=== PATIENT | female | born 1965 | race Caucasian/White ===

== ENCOUNTER 2017-09-16 11:23 | Emergency (ER) | payer BC ==
[2017-09-16 11:50] VITALS: BP 103/63
--- NOTE | 2017-09-16 12:58 | UC ---
Complaint Female HPI - HPI Summary HPI Summary: c/o inc urinanary freq and burning with urination, intermittent lower ab pressure when urinating, nausea starting yest afternoon. Denies fever, cough, sore throat, cp, sob, v/d, rash, change in BM, vaginal sx. Med hx = none. - History Of Current Complaint Hx Obtained From: Patient Hx Last Menstrual Period: 09/08/17 Onset/Duration: Gradual Onset Timing: Intermittent Severity Currently: None Pain Intensity: 0 Pain Scale Used: 0-10 Numeric Aggravating Factor(s): Urination Alleviating Factor(s): Nothing Associated Signs And Symptoms: Negative: Fever, Back Pain, Vaginal Bleeding/ Discharge, Vaginal Discharge, Vomiting(# Of Episodes =) <Gurjit Gonzalez - Last Filed: 09/16/17 12:52> <Allie Jenkins - Last Filed: 09/17/17 19:38> - History Of Current Complaint Chief Complaint: UCGU Stated Complaint: UTI SYMPTOMS Time Seen by Provider: 09/16/17 12:43 - Allergies/Home Medications Allergies/Adverse Reactions: Allergies Allergy/AdvReac Type Severity Reaction Status Date / Time amoxicillin Allergy Hives Verified 09/16/17 11:44 Sulfa (Sulfonamide Allergy Hives Verified 09/16/17 11:44 Antibiotics) Home Medications: Home Medications Cranberry Conc/C/Bacill Coag [Azo Cranberry 250-30 mg] 1 tab PO 09/16/17 [ History] Mometasone Furoate [Nasonex] 50 mcg NA DAILY 09/16/17 [History Confirmed ] Montelukast Sodium TAB* [Singulair TAB*] 10 mg PO DAILY 09/16/17 [History Confirmed 09/16/17] PMH/Surg Hx/FS Hx/Imm Hx - Surgical History Surgical History: Yes Surgery Procedure, Year, and Place: tubal ligation. hernia. tonsils. bladder sling. ablation - Family History Known Family History: Positive: Diabetes - Social History Alcohol Use: None Substance Use Type: None Smoking Status (MU): Former Smoker When Did the Patient Quit Smoking/Using Tobacco: 2004 <Gurjit Gonzalez - Last Filed: 09/16/17 12:52> Review of Systems Constitutional: Negative Skin: Negative Eyes: Negative ENT: Negative Respiratory: Negative Cardiovascular: Negative Gastrointestinal: Nausea, Other - lower bilat ab pressure Genitourinary: Dysuria Motor: Negative Neurovascular: Negative Musculoskeletal: Negative Neurological: Negative Psychological: Negative Is Patient Immunocompromised?: No All Other Systems Reviewed And Are Negative: Yes <CarlosGurjit - Last Filed: 09/16/17 12:52> Physical Exam Triage Information Reviewed: Yes Appearance: Well-Appearing Vital Signs: Initial Vital Signs Temp 97.8 F 09/16/17 11:45 Pulse 71 09/16/17 11:45 Resp 16 09/16/17 11:45 BP 103/63 09/16/17 11:45 Pulse Ox 99 09/16/17 11:45 Vital Signs Reviewed: Yes Eye Exam: Normal Neck exam: Normal Respiratory Exam: Normal Cardiovascular Exam: Normal Abdominal Exam: Normal Musculoskeletal Exam: Normal Neurological Exam: Normal Psychological Exam: Normal Skin Exam: Normal <CarlosGurjit - Last Filed: 09/16/17 12:52> Vital Signs: Initial Vital Signs Temp 97.8 F 09/16/17 11:45 Pulse 71 09/16/17 11:45 Resp 16 09/16/17 11:45 BP 103/63 09/16/17 11:45 Pulse Ox 99 09/16/17 11:45 <Allie Jenkins - Last Filed: 09/17/17 19:38> Complaint Female Dx - Course Course Of Treatment: + UA + urine sx. Vs wnl. Pt states BP often low, baseline BP around 110/80. Rx for cipro. Refused rx for antiemetic - Differential Dx/Diagnosis Provider Diagnoses: uti <Gurjit Gonzalez - Last Filed: 09/16/17 12:52> Discharge - Sign-Out/Discharge Documenting (check all that apply): Discharge/Admit/Transfer - Billing Disposition and Condition Condition: STABLE Disposition: Home <Gurjit Gonzalez - Last Filed: 09/16/17 12:52> - Billing Disposition and Condition Condition: STABLE Disposition: Home <Allie Jenkins - Last Filed: 09/17/17 19:38> - Discharge Plan Condition: Stable Disposition: HOME Prescriptions: Ciprofloxacin HCl [Cipro] 500 mg PO BID 10 Days #20 tablet Patient Education Materials: Urinary Tract Infection in Women (ED) Referrals: No Primary Care Phys,NOPCP [Primary Care Provider] - [facility] [Outside] Additional Instructions: Take cipro as directed. Follow up with primary care. Return for any new or worsening symptoms. Attestation Statement User Type: Provider - I was available for consult. This patient was seen by the LASHAWN. The patient was not presented to, seen by, or examined by me. -Solange <Allie Jenkins - Last Filed: 09/17/17 19:38>
== END 2017-09-16 13:10 | disposition home or self-care (01) ==
LOC: UCCORT 11:23
DX: N39.0 Urinary tract infection, site not specified (principal); Z88.0 Allergy status to penicillin; Z88.2 Allergy status to sulfonamides; Z87.891 Personal history of nicotine dependence
CPT/HCPCS: 81003; 87077; 87086; 87186; 99212; G0463

== ENCOUNTER 2018-06-09 08:46 | Emergency (ER) | payer BC ==
--- OUTSIDE RECORDS SUMMARY | 2018-06-09 08:55 | XMS REPORT | Continuity of Care Document ---
:1965 External Reference #:[id number] Author Name Juliette Gomez PA Address [address] [place] [address] Care Team Providers Name Role Phone Juliette Gomez PA Care Team Information Entry Level Manager Unavailable Payers Date Identification Numbers Payment Provider Subscriber Effective: 2011 Policy Number: [id number] [facility] [employer] Jenna Ames PayID: [id number] [address] [address] [place] [address] Onset: 2008 Policy Number: [id number] [employer] Jenna Ames PayID: [id number] [address] [place] [address] Advance Directives Description No Information Available Problems Date Description Provider Status Onset: 11/05/2007 Allergic rhinitis due to pollen Cody Quiros DO Active Onset: 03/15/2007 Moderate major depression, single Cody Quiros DO Active episode Family History Description No Information Available Social History Type Date Description Comments Sex Unknown Education Highest level completed, 2 years of college Marital Status Occupation Teacher ETOH Use Occasionally consumes alcohol Tobacco Use Start: Unknown End: Patient is a former smoker quit 2006 Unknown Recreational Drug Use Denies Drug Use Smoking Status Reviewed: 05/10/18 Patient is a former smoker quit 2006 Allergies, Adverse Reactions, Alerts Date Description Reaction Status Severity Comments 08/24/2004 Amoxicillin Active 07/14/2014 Sulfa Drugs Active 08/07/2017 Vyvanse Active Hives Medications Medication Date Status Form Strength Qnty SIG Indications Ordering Provider Cyclobenzaprine 05/22 Active Tablets 5mg 30tab 1 tablet by M25.552 Salcedo, HCL s mouth three Elkin, times daily DO as needed for muscle spasm Doxycycline 05/22 Active Capsules 100mg 20cap 1 tablet by J01.90 Salcedo, Hyclate s mouth twice Elkin, a day x 10 DO days Mometasone 03/21 Active Suspension 50mcg/Act 51gm 2 sprays Salcedo, Furoate each Elkin, nostril DO daily Proair HFA 07/26 Active Aerosol 108(90Bas 1unit 2 puffs J06.9 Digiovann e) s every 4 a, mcg/Act hours as Anuradha, needed for PRODUCT DEVELOPMENT DIRECTOR cough or sob Montelukast 12/21 Active Tablets 10mg 90tab take 1 Salcedo, Sodium s tablet Elkin, daily DO Levofloxacin 03/21 Hx Tablets 500mg 7tabs 1 tablet by J01.90 Salcedo, mouth once Elkin, - daily for 7 DO Doxycycline 02/26 Hx Capsules 100mg 20cap 1 pill by J01.90 Digiovann Hyclate s mouth twice a, - a day, with Anuradha, 03/08 food but not with milk products Doxycycline 08/07 Hx Tablets 100mg 20tab 1 by mouth J01.90 Digiovann Hyclate s twice a day a, - for 10 days Anuradha, 08/17 Azithromycin 02/19 Hx Tablets 500mg 7tabs 1 by mouth J01.90 Ishaan, every day Cody, - DO 08/07 Benzonatate 07/26 Hx Capsules 200mg 30cap 1 by mouth J06.9 Digiovann s every 8 a, - hours as Anuradha, 02/19 needed for cough, may cause drowsiness Nitrofurantoin 07/07 Hx Capsules 100mg 14cap 1 po bid x N39.0 [place], Monohyd Macro s 7 days Juliette - PA 07/14 Tessalon 03/07 Hx Capsules 200mg 30cap 1 by mouth J06.9 Ishaan, s three times Cody, - a day DO 07/07 Fluocinolone 06/16 Hx Cream 0.01% 60gm Apply To L23.5 Ishaan, Acet Area bid X Cody, - 7-10 Days DO 03/07 Diflucan 06/13 Hx Tablets 150mg 1tabs 1 by mouth Ishaan, now Cody, - DO 03/07 Levaquin 02/12 Hx Tablets 500mg 10tab 1 po daily R05 Salcedo, s Elkin, - DO 02/22 Prednisone 02/12 Hx Tablets 10mg 21tab 6 pills R0 Salcedo, s daily x 1 Elkin, - day, the 5 DO 02/19 pills daily /2014 x 1 day, 4 po daily x 1 day, 3 po daily x 1 day, 2 po daily x1, 1 po daily x 1 day Diflucan 01/20 Hx Tablets 150mg 1tabs 1 by mouth Ishaan, now Cody, - DO 02/12 Levaquin 01/14 Hx Tablets 500mg 10tab 1 by mouth J32.9 Ishaan, s every day Cody, - DO 02/12 Benzonatate 01/14 Hx Capsules 200mg 30cap 1 by mouth J32.9 Ishaan, s three times Cody, - a day DO 04/06 Doxycycline 12/21 Hx Tablets 100mg 20tab 1 by mouth J32.9 Ishaan, s twice a day Cody, - DO 01/14 Azithromycin 12/03 Hx Tablets 500mg 7tabs 1 by mouth 461.9 Ishaan, every day Cody, - DO 12/21 Singulair 10/05 Hx Tablets 10mg 90tab Take 1 By Ishaan, s Mouth Cody, - Nightly AT DO 11/02 Bedtime Doxycycline 07/[address] 100mg 20tab 1 by mouth 461.8 Ishaan, s twice a day Cody, - DO 10/05 Diflucan 06/15 Hx Tablets 150mg 1tabs 1 PO Now Ishaan, Cody, - DO 07/14 Clobetasol 04/06 Hx Cream 0.05% 60gm apply to Ishaan, area twice Cody, - a day DO 07/14 Azithromycin 04/06 Hx Tablets 500mg 7tabs 1 by mouth 461.8 Ishaan, every day Cody, - DO 07/14 Pristiq 03/27 Hx Tablets ER 50mg 90tab 1 by mouth Ishaan, 24HR s every d Cody, - DO 11/02 Ibuprofen 03/14 Hx Tablets 800mg 90tab 1 po tid Ishaan, s with food Cody, - DO 04/06 Nasonex 07/31 Hx Suspension 50mcg/Act 51gm 2 sprays Ishaan each Cody, - nostril DO 03/21 Montelukast 08/09 Hx Tablets 10mg 90tab 1 by mouth Ishaan, s every night Cody, - at bedtime DO 10/05 Medications Administered in Office Medication Date Status Form Strength Qnty SIG Indications Ordering Provider Depo Medrol 40 Administered Injection Ishaan, MG 016 Cody, DO Immunizations CPT Code Status Date Vaccine Reaction Lot # 62061 Given 12/26/2004 Tetanus And Diptheria Toxoids For Adult Use-preservative free Q2039 Refused 02/26/2018 Flu Vaccine NOS Pt says she does not get flu shots. IESHA GUZMAN 02/26/18 Vital Signs Date Vital Result Comment 05/22/2018 4:03pm Weight 148.00 lb Heart Rate 72 /min BP Systolic 120 mmHg BP Diastolic 72 mmHg Respiratory Rate 18 /min Height 60.25 inches 5'0.25" BMI (Body Mass Index) 28.7 kg/m2 05/10/2018 11:30am Body Temperature 98.1 F tympanic Weight 152.56 lb Heart Rate 76 /min BP Systolic 128 mmHg BP Diastolic 76 mmHg Respiratory Rate 16 /min Height 60.25 inches 5'0.25" BMI (Body Mass Index) 29.5 kg/m2 03/21/2018 4:11pm Body Temperature 99.1 F tympanic Weight 149.00 lb Heart Rate 78 /min BP Systolic 130 mmHg BP Diastolic 78 mmHg Respiratory Rate 18 /min Height 60.25 inches 5'0.25" O2 % BldC Oximetry 97 % Room Air BMI (Body Mass Index) 28.9 kg/m2 02/26/2018 11:20am Body Temperature 98.6 F tympanic Weight 145.00 lb Heart Rate 80 /min BP Systolic 122 mmHg BP Diastolic 78 mmHg Respiratory Rate 18 /min Height 60.25 inches 5'0.25" O2 % BldC Oximetry 96 % Room Air BMI (Body Mass Index) 28.1 kg/m2 08/07/2017 2:59pm Body Temperature 98.8 F tympanic Weight 144.00 lb Heart Rate 84 /min BP Systolic 126 mmHg BP Diastolic 80 mmHg Respiratory Rate 18 /min Height 60.25 inches 5'0.25" O2 % BldC Oximetry 98 % Room Air BMI (Body Mass Index) 27.9 kg/m2 02/19/2017 11:13am Body Temperature 98.2 F tympanic Weight 146.00 lb per pt today Heart Rate 80 /min BP Systolic 126 mmHg BP Diastolic 78 mmHg Respiratory Rate 18 /min Height 60.25 inches 5'0.25" O2 % BldC Oximetry 97 % On room air BMI (Body Mass Index) 28.3 kg/m2 07/26/2016 3:12pm Body Temperature 99.4 F Weight 146.00 lb Per PT Heart Rate 88 /min BP Systolic 112 mmHg BP Diastolic 70 mmHg O2 % BldC Oximetry 98 % Ra 07/07/2016 1:29pm Weight 147.00 lb Heart Rate 74 /min BP Systolic 120 mmHg BP Diastolic 70 mmHg Respiratory Rate 18 /min 03/07/2016 11:06am Body Temperature 96.9 F Weight 152.00 lb Stated By PT Heart Rate 78 /min BP Systolic 110 mmHg BP Diastolic 72 mmHg Respiratory Rate 18 /min O2 % BldC Oximetry 97 % Ra 06/17/2015 2:49pm Weight 142.00 lb BP Systolic 78 mmHg Respiratory Rate 18 /min 04/06/2015 4:05pm Weight 145.00 lb Heart Rate 78 /min BP Systolic 110 mmHg BP Diastolic 70 mmHg Respiratory Rate 24 /min Height 60.25 inches 5'0.25" (04/06/15) BMI (Body Mass Index) 28.1 kg/m2 02/12/2015 11:33am Body Temperature 97.4 F Weight 146.00 lb Heart Rate 64 /min BP Systolic 126 mmHg BP Diastolic 70 mmHg Respiratory Rate 18 /min Height 60.25 inches 5'0.25" O2 % BldC Oximetry 96 % BMI (Body Mass Index) 28.3 kg/m2 01/14/2015 9:22am Body Temperature 97.3 F Weight 143.00 lb Heart Rate 72 /min BP Systolic 102 mmHg BP Diastolic 64 mmHg Respiratory Rate 18 /min Height 60.25 inches 5'0.25" O2 % BldC Oximetry 97 % Ra BMI (Body Mass Index) 27.7 kg/m2 12/03/2014 4:30pm Body Temperature 98.7 F Heart Rate 78 /min BP Systolic 110 mmHg BP Diastolic 68 mmHg Respiratory Rate 18 /min O2 % BldC Oximetry 98 % Ra 10/05/2014 3:21pm Weight 142.00 lb Heart Rate 78 /min 72 Reg BP Systolic 110 mmHg BP Diastolic 60 mmHg BP Systolic Recheck 110 mmHg BP Diastolic Recheck 60 mmHg Respiratory Rate 18 /min Height 60.25 inches 5'0.25" BMI (Body Mass Index) 27.5 kg/m2 07/14/2014 2:25pm Body Temperature 98.7 F Weight 140.00 lb Heart Rate 92 /min BP Systolic 92 mmHg BP Diastolic 68 mmHg Respiratory Rate 18 /min Height 60.25 inches 5'0.25" O2 % BldC Oximetry 96 % BMI (Body Mass Index) 27.1 kg/m2 04/06/2014 3:19pm Weight 144.00 lb Heart Rate 78 /min 72 Reg BP Systolic 118 mmHg BP Diastolic 80 mmHg BP Systolic Recheck 120 mmHg BP Diastolic Recheck 80 mmHg Respiratory Rate 18 /min Height 60.25 inches 5'0.25" BMI (Body Mass Index) 27.9 kg/m2 01/26/2014 3:30pm Body Temperature 97.5 F Weight 140.00 lb Heart Rate 86 /min BP Systolic 102 mmHg BP Diastolic 70 mmHg Respiratory Rate 18 /min Height 59.75 inches 4'11.75" O2 % BldC Oximetry 97 % 01/13/2014 11:14am Body Temperature 97.8 F Weight 140.00 lb pr PT Heart Rate 72 /min BP Systolic 124 mmHg BP Diastolic 68 mmHg Respiratory Rate 18 /min Height 59.75 inches 4'11.75" 09/12/2013 12:59pm BP Systolic 110 mmHg BP Diastolic 72 mmHg 09/12/2013 12:59pm Weight 142.00 lb Heart Rate 76 /min 72 Reg BP Systolic 120 mmHg BP Diastolic 76 mmHg Respiratory Rate 18 /min Height 59.75 inches 4'11.75" 03/14/2013 3:23pm Weight 145.00 lb Heart Rate 78 /min BP Systolic 110 mmHg BP Diastolic 70 mmHg Respiratory Rate 18 /min 11/08/2012 4:02pm Weight 143.00 lb Heart Rate 66 /min BP Systolic 130 mmHg BP Diastolic 80 mmHg Respiratory Rate 18 /min 09/30/2012 1:14pm Weight 142.00 lb pr PT Heart Rate 74 /min BP Systolic 132 mmHg BP Diastolic 72 mmHg Respiratory Rate 18 /min 09/12/2012 3:43pm Weight 138.00 lb Heart Rate 70 /min BP Systolic 116 mmHg BP Diastolic 72 mmHg Respiratory Rate 16 /min 03/07/2012 2:52pm BP Systolic 100 mmHg BP Diastolic 64 mmHg 03/07/2012 2:52pm Weight 142.00 lb Heart Rate 78 /min 72 Reg BP Systolic 111 mmHg BP Diastolic 70 mmHg Respiratory Rate 18 /min 12/25/2011 2:15pm Body Temperature 98.9 F Weight 137.00 lb Heart Rate 88 /min BP Systolic 130 mmHg BP Diastolic 74 mmHg Respiratory Rate 18 /min Height 59.75 inches 4'11.75" O2 % BldC Oximetry 96 % 10/19/2011 10:23am Body Temperature 98.3 F Weight 139.00 lb Heart Rate 90 /min BP Systolic 110 mmHg BP Diastolic 70 mmHg Respiratory Rate 18 /min Height 59.75 inches 4'11.75" 08/22/2011 3:23pm BP Systolic 100 mmHg BP Diastolic 58 mmHg 08/22/2011 3:23pm Weight 144.00 lb Per PT. Heart Rate 72 /min BP Systolic 92 mmHg BP Diastolic 52 mmHg Respiratory Rate 18 /min 08/03/2011 4:22pm Weight 145.00 lb pr PT Heart Rate 72 /min BP Systolic 102 mmHg BP Diastolic 60 mmHg Respiratory Rate 18 /min Height 59.75 inches 4'11.75" 07/07/2011 3:17pm Weight 145.00 lb Heart Rate 78 /min BP Systolic 102 mmHg BP Diastolic 60 mmHg Respiratory Rate 18 /min Height 59.75 inches 4'11.75" 06/29/2011 9:58am Weight 145.00 lb PRPT Heart Rate 80 /min BP Systolic 100 mmHg BP Diastolic 68 mmHg Respiratory Rate 18 /min Height 59.75 inches 4'11.75" 02/20/2011 3:28pm BP Systolic 100 mmHg BP Diastolic 60 mmHg 02/20/2011 3:28pm Weight 148.00 lb Heart Rate 78 /min 64 Reg BP Systolic 92 mmHg BP Diastolic 58 mmHg Respiratory Rate 18 /min 01/20/2011 2:32pm Body Temperature 98.2 F Weight 149.00 lb Used PT WT From Home; Declined In Office Heart Rate 76 /min BP Systolic 102 mmHg L/LG BP Diastolic 70 mmHg L/LG Respiratory Rate 17 /min Height 59.75 inches 4'11.75" 01/11/2011 4:25pm Weight 152.00 lb Per Patient Heart Rate 77 /min BP Systolic 90 mmHg BP Diastolic 68 mmHg Respiratory Rate 18 /min Height 59.75 inches 4'11.75" 11/15/2010 1:15pm Weight 150.00 lb Heart Rate 72 /min BP Systolic 94 mmHg BP Diastolic 62 mmHg Respiratory Rate 18 /min Height 59.75 inches 4'11.75" 08/04/2010 4:22pm BP Systolic 90 mmHg BP Diastolic 60 mmHg 08/04/2010 4:22pm Weight 146.00 lb Heart Rate 72 /min BP Systolic 90 mmHg BP Diastolic 52 mmHg Respiratory Rate 18 /min Height 59.75 inches 4'11.75" 05/18/2010 10:50am Weight 143.00 lb pr PT Heart Rate 68 /min BP Systolic 120 mmHg BP Diastolic 70 mmHg Respiratory Rate 14 /min 12/14/2009 3:31pm BP Systolic 110 mmHg BP Diastolic 70 mmHg 12/14/2009 3:31pm Weight 150.31 lb Heart Rate 78 /min 72 Reg BP Systolic 112 mmHg BP Diastolic 72 mmHg Respiratory Rate 18 /min 03/16/2009 1:50pm Weight 155.00 lb Heart Rate 78 /min BP Systolic 108 mmHg BP Diastolic 66 mmHg Respiratory Rate 24 /min 12/22/2008 11:39am Body Temperature 97.8 F Weight 146.00 lb Heart Rate 68 /min BP Systolic 110 mmHg RIGHT BP Diastolic 52 mmHg RIGHT Respiratory Rate 15 /min 12/03/2008 4:16pm Body Temperature 98.8 F Weight 147.00 lb Heart Rate 85 /min BP Systolic 108 mmHg BP Diastolic 68 mmHg Respiratory Rate 15 /min O2 % BldC Oximetry 95 % 11/04/2008 11:05am Weight 147.00 lb Heart Rate 72 /min BP Systolic 102 mmHg BP Diastolic 68 mmHg Respiratory Rate 18 /min 10/15/2008 3:57pm Weight 145.00 lb Per PT. Heart Rate 78 /min BP Systolic 108 mmHg BP Diastolic 74 mmHg Respiratory Rate 18 /min 09/07/2008 8:31am Heart Rate 68 /min BP Systolic 110 mmHg BP Diastolic 72 mmHg Respiratory Rate 14 /min 06/30/2008 1:01pm Body Temperature 98.2 F Weight 146.00 lb Heart Rate 76 /min BP Systolic 100 mmHg BP Diastolic 70 mmHg Respiratory Rate 20 /min O2 % BldC Oximetry 97 % 05/07/2008 10:20am Weight 148.00 lb Per PT. Heart Rate 72 /min BP Systolic 102 mmHg BP Diastolic 70 mmHg Respiratory Rate 18 /min 04/09/2008 10:03am Weight 152.00 lb Per PT. Heart Rate 72 /min BP Systolic 110 mmHg BP Diastolic 82 mmHg Respiratory Rate 18 /min Height 60.25 inches 5'0.25" 03/31/2008 11:41am Weight 151.00 lb Heart Rate 78 /min BP Systolic 104 mmHg LEFT - Very Faint BP Diastolic 68 mmHg LEFT - Very Faint Respiratory Rate 18 /min Height 60.25 inches 5'0.25" 03/09/2008 1:44pm Body Temperature 97.3 F Weight 152.00 lb Heart Rate 80 /min BP Systolic 112 mmHg BP Diastolic 60 mmHg Respiratory Rate 14 /min Height 60.25 inches 5'0.25" 02/07/2008 8:15am Weight 157.00 lb Heart Rate 72 /min BP Systolic 110 mmHg BP Diastolic 70 mmHg Height 60.25 inches 5'0.25" 12/11/2007 10:59am Body Temperature 97.4 F Weight 155.00 lb Heart Rate 70 /min BP Systolic 110 mmHg BP Diastolic 80 mmHg Respiratory Rate 18 /min Height 60.25 inches 5'0.25" O2 % BldC Oximetry 96 % 11/05/2007 10:43am Heart Rate 68 /min BP Systolic 116 mmHg BP Diastolic 76 mmHg Respiratory Rate 14 /min Height 60.25 inches 5'0.25" 05/24/2007 1:40pm Body Temperature 97.9 F Weight 152.00 lb Heart Rate 67 /min BP Systolic 112 mmHg BP Diastolic 80 mmHg Respiratory Rate 19 /min Height 60.25 inches 5'0.25" 03/15/2007 1:52pm Weight 152.00 lb Heart Rate 78 /min BP Systolic 102 mmHg BP Diastolic 62 mmHg Respiratory Rate 18 /min Height 60.25 inches 5'0.25" 02/14/2007 9:00am Weight 160.00 lb Heart Rate 78 /min BP Systolic 112 mmHg BP Diastolic 74 mmHg Respiratory Rate 18 /min Height 60.25 inches 5'0.25" 12/21/2006 2:56pm Body Temperature 97.3 F Weight 157.00 lb Heart Rate 80 /min BP Systolic 110 mmHg BP Diastolic 70 mmHg Respiratory Rate 14 /min Height 60.25 inches 5'0.25" 10/31/2006 10:02am Weight 156.00 lb Heart Rate 68 /min BP Systolic 94 mmHg BP Diastolic 68 mmHg Respiratory Rate 18 /min Height 60.25 inches 5'0.25" 10/12/2006 9:39am Weight 158.00 lb Heart Rate 75 /min BP Systolic 110 mmHg BP Diastolic 72 mmHg Respiratory Rate 18 /min Height 60.25 inches 5'0.25" 08/09/2005 3:27pm Body Temperature 98.5 F Weight 152.00 lb Heart Rate 98 /min BP Systolic 110 mmHg BP Diastolic 70 mmHg Respiratory Rate 20 /min Height 60.25 inches 5'0.25" 08/03/2005 10:58am Body Temperature 98.5 F Weight 148.00 lb Heart Rate 90 /min Reg BP Systolic 96 mmHg RIGHT BP Diastolic 70 mmHg RIGHT Respiratory Rate 18 /min Height 60.25 inches 5'0.25" 05/26/2005 11:39am Body Temperature 98.0 F Weight 150.00 lb Heart Rate 80 /min BP Systolic 120 mmHg BP Diastolic 80 mmHg Height 60.25 inches 5'0.25" 12/26/2004 3:17pm Weight 150.00 lb Heart Rate 96 /min Reg BP Systolic 120 mmHg LEFT BP Diastolic 70 mmHg LEFT Height 60.25 inches 5'0.25" 08/24/2004 4:09pm Weight 149.00 lb Heart Rate 84 /min BP Systolic 108 mmHg BP Diastolic 78 mmHg Respiratory Rate 16 /min Results Test Date Facility Test Result H/L Range Note C Herbarum Ige 03/26/2018 [facility] C. Herbarum <0.35 kU/L (0.00-0.35 ) [phone] Result C. Herbarum Class 0 A. Fumigatus Ige 03/26/2018 [facility] A. Fumigatus <0.35 kU/L (0.00- 0.35) [phone] Result A. Fumigatus Class 0 A Tenuis Ige 03/26/2018 [facility] A. Tenuis Result <0.35 kU/L (0.00- 0.35) 2 [phone] A. Tenuis Class 0 Penicillium 03/26/2018 [facility] Penicillium <0.10 kU/L 2 [facility] [phone] [facility] Allergen Ige Giulia 03/26/2018 [facility] Giulia <0.10 kU/L 3 Albicans Ige [phone] Albicans Ige Allergy 03/26/2018 [facility] Allergy See Note 4 Interp [phone] Interp Laboratory 05/10/2017 [facility] Urine HCG NEGATIVE Negative 5, test finding [phone] (Qualitative 6 ) Laboratory 07/07/2016 [facility] Urine Microbiology Abnormal 7 test finding Culture res <SEE NOTE> Basic (BMP) 04/17/2014 [facility] Sodium 138 mmol/L 134-142 Potassium 4.6 mmol/L 3.5-5.2 Chloride 101 mmol/L 97-109 Carbon Dioxide 31 mmol/L 24-34 Glucose 106 mg/dL 70-110 BUN 15 mg/dL 6-26 Creatinine 0.8 mg/dL 0.5-1.4 Calcium 9.3 mg/dL 8.5-10.2 Anion Gap 11 mmol/L 6-14 Non Jody Egfr >60 >60 8 Jody Egfr >60 >60 9 Laboratory test 04/17/2014 [facility] Hemoglobin A1c 5.4 % 4.1-5.9 finding Lipid Panel 09/12/2013 N2N/CCD Import Chol/HDL Ratio 5.0 ratio Cholesterol 189.0 mg/dL 50.0-199.0 HDL 38.0 mg/dL Low 45.0-86.0 LDL, Calculated 128.2 mg/dL 20.0-129.0 Triglycerides 114.0 mg/dL 30.0-150.0 vLDL 22.8 ng/dL Laboratory test finding 09/12/2013 N2N/CCD Import % Baso. 1.2 % 0.0-2.0 % Eos. 7.4 % High 0.0-4.0 % Lymph 15 % Low 20-44 % Avery 5.8 % 2.0-10.0 % Yamileth 71 % High 50-70 Absolute Baso. 0.1 K/ul 0.0-0.3 Absolute Eos. 0.9 K/ul High 0.0-0.5 Absolute Lymph. 1.8 K/ul 0.8-4.8 Absolute Avery. 0.7 K/ul 0.1-1.0 Absolute Yamileth. 8.34 K/ul High 2.05-7.63 BUN 13.0 mg/dL 7.0-18.0 BUN/Creat Ratio 18.6 ratio 12.0-20.0 Calcium 9.2 mg/dL 8.7-10.5 Chloride 105.0 mmol/L 98.0-107.0 Co2 26.0 mmol/L 22.0-30.0 Creatinine-Serum 0.7 mg/dL 0.7-1.2 Glucose 143.0 mg/dL High 75.0-110.0 HCT 45.6 % 37.0-51.0 HGB 15.5 Gm/dl 12.0-16.0 MCH 31.3 pg 26.0-32.0 MCHC 34.0 g/dL 31.0-36.0 MCV 92.0 Fl 80.0-97.0 MPV 6.4 fL 6.0-10.0 PLT 445 K/ul High 140-440 Potasium 4.2 mmol/L 3.6-5.0 RBC 5.0 M/ul 4.2-6.3 RDW 12.7 % 11.5-14.5 Sodium 140.0 mmil/L 137.0-145.0 Vitamin D 24.3 ng/mL Low 30.0-100.0 WBC 11.8 K/ul High 4.1-10.9 eGFR 95.3 Laboratory test finding 11/08/2012 N2N/CCD Import Giulia species See Note 10 Gardnerella vaginalis See Note 11 Trichomonas vaginalis See Note 12 Laboratory test 06/29/2011 N2N/CCD Import Absolute 0.154 K/ul 0.0-0.3 finding Basophils Absolute Eosinophils 0.365 K/ul 0.0-0.5 Absolute Lymphocytes 1.57 K/ul 0.8-4.8 Absolute Monocytes 0.526 K/ul 0.1-1.0 Absolute Neutrophils 8.65 K/ul High 2.05-7.63 Basophil 1.4 % 0-2 Eosinophil 3.2 % 0-4 Esr (Sed Rate/Westergren) 0 SEC 0-25 Hematocrit 51.0 % 37.0-51.0 Hemoglobin 16.6 GM/dl High 12.0-16.0 Lymphocytes 14.0 % Low 20-44 MCH 29.8 pg 26.0-32.0 MCHC 32.6 g/dL 31.0-36.0 MCV 92 FL 80-97 Monocytes 4.7 % 2-10.0 Neutrophils 76.8 % High 50-70 Platelet Count 444 K/ul High 140-440 RBC 5.57 M/ul 4.2-6.3 RDW 12.3 % 11.5-14.5 Rheumatoid Factor Screen Negative Negative WBC 11.3 K/ul High 4.1-10.9 Antinuclear Abs Ifa 06/29/2011 N2N/CCD Import Antinuclear See patterns . 13 Antibodies, Ifa Homogeneous Pattern 1:80 . Note See Note 14 Laboratory test finding 08/04/2010 N2N/CCD Import Anion Gap 11 mEq/L 8- 16 BUN 14 mg/dL 5-23 BUN/Creat 17.5 Bas% 0.7 % 0.0-1.1 Baso # 0.09 K/uL 0.0-0.1 Calcium 8.9 mg/dL 8.5-10.1 Carbon Dioxide 31 mEq/L 21-32 Chloride 102 mEq/L 98-107 Creatinine 0.8 mg/dL 0.5-1.4 Eo% 4.5 % 0.0-6.6 Eos # 0.55 K/uL High 0.0-0.5 Glom Filtration Rate, Estimate >60 mL/min >60 Glucose 105 mg/dL 76-115 Hematocrit 44.9 % 36.0-46.1 Hemoglobin 15.6 gm/dL 11.6-15.8 If >60 mL/min >60 15 Lymph # 2.77 K/uL 0.8-3.4 Lymph % 22.6 % 17.0-46.1 Mean Cell Volume 92.2 fl 80.9-99.0 Mean Corpuscular HGB 32.0 pg 25.9-32.7 Mean Corpuscular HGB Conc 34.7 g/dL High 30.8-34.3 Mean Platelet Volume 10.8 fL 8.9-12.4 Avery # 0.75 K/uL 0.3-0.9 Avery % 6.1 % 4.3-13.2 Neut# 8.09 K/uL High 1.0-7.0 Neut% 66.1 % 40.4-72.8 Platelet Count 491 K/uL High 155-360 Potassium 4.1 mEq/L 3.5-5.1 Red Blood Count 4.87 M/uL 3.90-5.40 Red Cell Distri Width %CV 14.4 % 11.7-14.4 Red Cell Distri Width SD 47.8 fl High 3-47 Sodium 140 mEq/L 136-145 Vitamin D,25-Hydroxy 35.0 ng/mL 32.0-100.0 16 White Blood Count 12.3 K/uL High 3.1-10.7 Laboratory test 12/14/2009 N2N/CCD Import Vitamin 19.9 ng/mL Low 32.0- 100.0 17 finding D,25-Hydroxy Laboratory test 03/16/2009 N2N/CCD Import Absolute 0.138 K/ul 0.0-0.3 18 finding Basophils Absolute Eosinophils 0.274 K/ul 0.0-0.5 Absolute Lymphocytes 1.74 K/ul 0.8-4.8 Absolute Monocytes 0.779 K/ul 0.1-1.0 Absolute Neutrophils 8.51 K/ul High 2.05-7.63 Anion Gap 15 mmol/L 10-20 BUN 15 mg/dL 7-18 BUN/CR Ratio 19.7 Ratio 12-20 Basophil 1.2 % 0-2 Calcium 10.5 mg/dL 8.7-10.5 Carbon Dioxide 30 mmol/L 22-30 Chloride 101 mmol/L 98-107 Creatinine, Serum 0.7 mg/dL 0.7-1.2 Eosinophil 2.4 % 0-4 Free T4 0.97 ng/dL 0.75-1.54 Glucose 93 mg/dL 65-105 Hematocrit 44.4 % 37.0-51.0 Hemoglobin 15.6 GM/dl 12.0-16.0 Lymphocytes 15.2 % Low 20-44 MCH 32.7 pg High 26.0-32.0 MCHC 35.2 g/dL 31.0-36.0 MCV 93 FL 80-97 Monocytes 6.8 % 2-10.0 Neutrophils 74.4 % High 50-70 Platelet Count 480 K/ul High 140-440 Potassium 4.6 mmol/L 3.6-5.0 RBC 4.78 M/ul 4.2-6.3 RDW 13.3 % 11.5-14.5 Sodium 142 mmol/L 137-145 TSH 1.057 uIU/ml 0.50-6.00 Vitamin D,25-Hydroxy 13.4 ng/mL Low 32.0-100.0 19 WBC 11.4 K/ul High 4.1-10.9 Vitamin B12 And Folate 03/16/2009 N2N/CCD Import Folic Acid 15.2 ng/mL 6.0-15.4 Vitamin B12 456 pg/mL [phone] Laboratory test 02/07/2008 N2N/CCD Import Culture Urine No Growth: 20 finding Final <See Note> Laboratory test 02/14/2007 N2N/CCD Import Absolute 0.07 K/ul 0.0-0.3 finding Basophils Absolute Eosinophils 0.28 K/ul 0.0-0.5 Absolute Lymphocytes 2.14 K/ul 0.8-4.8 Absolute Monocytes 0.63 K/ul 0.1-1.0 Absolute Neutrophils 6.18 K/ul 2.05-7.63 Anion Gap 13 mmol/L 10-20 BUN 14 mg/dL 7-18 BUN/CR Ratio 20.8 Ratio High 12-20 Basophil 0.8 % 0-2 Calcium 8.7 mg/dL 8.7-10.5 Carbon Dioxide 28 mmol/L 22-30 Chloride 102 mmol/L 98-107 Creatinine, Serum 0.7 mg/dL 0.7-1.2 Eosinophil 3.0 % 0-4 Free T4 1.14 ng/dL 0.75-1.54 Glucose 118 mg/dL High 65-105 Hematocrit 42.8 % 37.0-51.0 Hemoglobin 14.6 GM/dl 12.0-16.0 Lymphocytes 23.0 % 20-44 MCH 31.2 pg 26.0-32.0 MCHC 34.1 g/dL 31.0-36.0 MCV 92 FL 80-97 Monocytes 6.8 % 2-10.0 Neutrophils 66.4 % 50-70 Platelet Count 433 K/ul 140-440 Potassium 3.6 mmol/L 3.6-5.0 RBC 4.67 M/ul 4.2-6.3 RDW 11.9 % 11.5-14.5 Serum Iron 88 g/dL 25-156 Sodium 139 mmol/L 137-145 TSH 2.444 uIU/ml 0.50-6.00 WBC 9.3 K/ul 4.1-10.9 Vitamin B12 And Folate 02/14/2007 N2N/CCD Import Folic Acid 14.1 ng/mL 6.0-15.4 Vitamin B12 676 pg/mL [phone] 1 REFERENCE RANGES FOR SPECIFIC IgE TESTS: IgE (kU/L) INTERPRETATION < 0.35 CLASS 0 ABSENT/VERY LOW 0.35 to 0.69 CLASS 1 LOW 0.70 to 3.49 CLASS 2 MODERATE 3.50 to 17.49 CLASS 3 HIGH 17.50 to 52.49 CLASS 4 VERY HIGH 52.50 to 99.99 CLASS 5 VERY HIGH > 99.99 CLASS 6 VERY HIGH 2 Reference range: <=0.34 Performed by [employer], [address] [facility] [place] [address] [email or web address], Edd Tapia MD, Lab. Director 3 Reference range: <=0.34 Performed by [employer], [address] [facility] [place] [address] [email or web address], Edd Tapia MD, Lab. Director 4 REFERENCE INTERVAL: Allergen, Interpretation Less than 0.10 kU/L......Class 0.....No significant level detected 0.10-0.34 kU/L...........Class 0/1...Clinical relevance undetermined 0.35-0.70 kU/L...........Class 1.....Low 0.71-3.50 kU/L...........Class 2.....Moderate 3.51-17.50 kU/L..........Class 3.....High 17.51-50.00 kU/L.........Class 4.....Very High 50.01-100.00 kU/L........Class 5.....Very High Greater than 100.00kU/L..Class 6.....Very High Allergen results of 0.10-0.34 kU/L are intended for specialist use as the clinical relevance is undetermined. Even though increasing ranges are reflective of increasing concentrations of allergen-specific IgE, these concentrations may not correlate with the degree of clinical response or skin testing results when challenged with a specific allergen. The correlation of allergy laboratory results with clinical history and in vivo reactivity to specific allergens is essential. A negative test may not rule out clinical allergy or even anaphylaxis. Performed by [facility], [address] [place] [id number] [email or web address], Edd Tapia MD, Lab. Director 5 SCREENING 6 FIRST MORNING SPECIMENS GENERALLY CONTAIN THE HIGHEST CONCENTRATION OF HCG AND ARE RECOMMENDED FOR EARLY DETECTION OF . Method: Quidel QuickVue One-Step Immunoassay 7 Microbiology results SOURCE Clean Catch Midstream COLONY COUNT >100,000 CFU/ML PRELIMINARY RESULT Gram Negative Prieto. ID & Sensitivity to Follow. FINAL RESULT Escherichia coli (Isolate 1) Sensitivity Analysis Isolate 1 --------- AMIKACIN <=16 S AMPICILLIN <=8 S AMPICILLIN/SULBACTAM <=8/4 S AZTREONAM <=4 S CEFAZOLIN <=2 S CEFEPIME <=8 S CEFTAZIDIME <=1 S CEFTRIAXONE <=1 S CIPROFLOXACIN <=1 S ERTAPENEM <=0.5 S GENTAMYCIN <=2 S IMIPENEM <=1 S LEVOFLOXACIN <=2 S NITROFURANTOIN <=32 S PIPERACILLIN/TAZOBACTAM <=16 S TETRACYCLINE <=4 S TOBRAMYCIN <=4 S TRIMETHOPRIM/SULFAMETHOXAZ <=2/38 S S=Sensitive;I=Indeterminate;R=Resistant 8 Concerning GFR Guidelines: Normal function or mild renal disease, if clinically at risk: >/=60 mL/min Moderately decreased: 30-59 Severely decreased: 15-29 Renal failure: <15 Glomerular Filtration Rate (GFR) is estimated based on the MDRD equation, which assumes a steady state for creatinine as recommended by the National Kidney Disease Education Program in conjunction with the National Institutes of Health and the National Kidney Foundation. Clinical conditions in which it may be necessary to measure GFR by using clearance methods include extremes of age and body size, severe malnutrition or obesity, diseases of skeletal muscle, paraplegia or quadriplegia, vegetarian diet, rapidly changing kidney function, and calculation of the dose of potentially toxic drugs that are excreted by the kidneys. 9 Concerning GFR Guidelines for Americans: Normal function or mild renal disease, if clinically at risk: >/=60 mL/min Moderately decreased: 30-59 Severely decreased: 15-29 Renal failure: <15 10 NEGATIVE FOR GIULIA SPECIES 11 NEGATIVE FOR GARDNERELLA VAGINALIS 12 NEGATIVE FOR TRICHOMONAS VAGINALIS 13 Negative <1:80 Borderline 1:80 Positive >1:80 14 A positive SWEETIE result may occur in healthy individuals or be associated with a variety of diseases. See interpre- tation below: Pattern Antigen Detected Suggested Disease Association Homogeneous DNA(ds,ss,), High titers - SLE ( Smooth) Histone Speckled Sm, BORDERER, SCL-70, SLE,MCTD,Scleroderma,Sjogrens SS-A/SS-B ---- Nucleolar SCL-70, PM-1/SCL High titers Scleroderma Poly- myositis/Scleroderma Overlap Centromere Centromere PSS w/Crest syndrome variable Performed at: [address] [id number] Pcb Design Engineer: Joey Walker MD, Phone: [phone] 15 Note: Persistent reduction for 3 months or more in an eGFR <60 mL/min/1.73 m2 defines CKD. Patients with eGFR values >/=60 mL/min/1.73 m2 may also have CKD if evidence of persistent proteinuria is present. The original MDRD equation for estimated GFR is not valid for patients less than 18 years of age. Additional information may be found at www.kdoqi.org. 16 Recent studies consider the lower limit of 32.0 ng/mL to be a threshold for optimal health. Ambrosio BW. J Nutr. 2004;135(2):317-22. Performed at: [facility] [address] [id number] Pcb Design Engineer: Joey Walker MD, Phone: [phone] 17 Recent studies consider the lower limit of 32.0 ng/mL to be a threshold for optimal health. Ambrosio BW. J Nutr. 2004;135(2):317-22. Performed at: [address] [id number] Pcb Design Engineer: Joey Walker MD, Phone: [phone] 18 FASTING 19 Recent studies consider the lower limit of 32.0 ng/mL to be a threshold for optimal health. Ambrosio BW. J Nutr. 2004;135(2):317-22. 20 NO GROWTH: FINAL REPORT Procedures Date Code Description Status 02/26/2018 28260 Measure Blood Oxygen Level Single Determination Completed 08/07/2017 39189 Measure Blood Oxygen Level Single Determination Completed 05/10/2017 63003022 Colonoscopy Completed 02/28/2017 00201077 Mammogram Completed 02/19/2017 47332 Measure Blood Oxygen Level Single Determination Completed 07/26/2016 54572 Measure Blood Oxygen Level Single Determination Completed 04/06/2015 51738 Inject/Drain Joint/Bursa Intermediate Completed 02/12/2015 91947 Measure Blood Oxygen Level Single Determination Completed 02/12/2015 61449 X-Ray Chest Two Views Frontal & Lateral Completed 07/14/2014 39513 Measure Blood Oxygen Level Single Determination Completed 11/08/2012 75466 Mammography Unilateral Completed 12/25/2011 92553 Measure Blood Oxygen Level Single Determination Completed 08/03/2011 02375 Destruction Benign Lesions Other Than Skin Tags Up To Completed 14 Lesions 07/07/2011 10667 Destruction Benign Lesions Other Than Skin Tags Up To Completed 14 Lesions 06/30/2008 30817 Measure Blood Oxygen Level Single Determination Completed 03/31/2008 59652 Omt 1-2 Body Regions Completed Encounters Type Date Location Provider Dx Diagnosis Office Visit 05/10/2018 STEFANI Barber M25.552 Pain in LEFT hip 11:30a Anuradha, PRODUCT DEVELOPMENT DIRECTOR Office Visit 03/21/2018 [facility] Juliette Gomez PA J01.90 Acute sinusitis, 4:00p unspecified J30.9 Allergic rhinitis, unspecified Z68.28 Body mass index (BMI) 28.0-28.9, adult Office Visit 02/26/2018 11:30a Anuradha Gutierrez, J01.90 Acute sinusitis, PRODUCT DEVELOPMENT DIRECTOR unspecified Office Visit 08/07/2017 2:45p [facility] Anuradha Barber, J01.90 Acute sinusitis, PRODUCT DEVELOPMENT DIRECTOR unspecified Office Visit 02/19/2017 11:00a [facility] Cody Quiros DO J01.90 Acute sinusitis, unspecified R35.0 Frequency of micturition Z12.11 Encounter for screening for malignant neoplasm of colon Office Visit 07/26/2016 2:45p Anuradha Gutierrez J06.9 Acute upper PRODUCT DEVELOPMENT DIRECTOR respiratory infection, unspecified Office Visit 07/07/2016 1:30p [facility] Juliette Gomez PA N39.0 Urinary tract infection, site not specified Office Visit 03/07/2016 11:00a Cody Hester DO J06.9 Acute upper respiratory infection, unspecified Office Visit 06/17/2015 2:45p Cody Hester DO L23.5 Allergic contact dermatitis due to other chemical products M77.12 Lateral epicondylitis, LEFT elbow Office Visit 04/06/2015 4:00p [facility] Cody Quiros, M77.12 Lateral epicondylitis, DO LEFT elbow M25.522 Pain in LEFT elbow Office Visit 02/12/2015 11:30a [facility] Libertad Eisenberg PA R05 Cough Office Visit 01/14/2015 9:30a [facility] Cody Quiros DO J32.9 Chronic sinusitis, unspecified Office Visit 12/03/2014 4:15p [facility] Cody Quiros DO 461.9 Sinusitis Acute Unspec Office Visit 10/05/2014 3:15p [facility] Cody Quiros, DO 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 477.0 Rhinitis Allergic Due To Pollen 790.29 Other Abnormal Glucose Office Visit 07/14/2014 2:30p [facility] Cody Quiros DO 461.8 Sinusitis Acute Other Office Visit 04/06/2014 3:15p [facility] Cody Quiros DO 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 muscle spasm - will try muscle relaxer, caution sedationMay continue ibuprofen up to 800mg every 6hours, take with foodContinue heating pad as neededCall with worsening/persisting symptomsFollow up:PrnJ01.90 Acute sinusitis, unspecifiedNew Medication:Doxycycline Hyclate 100 mg - 1 tablet by mouth twice a day x 10 daysComments:Push fluidsTylenol/motrin as needed for fever/painDoxycycline as prescribedSinus rinse as neededCallwith any questions or jhyncxgzX08.28 Body mass index (BMI) 28.0-28.9, adult
--- OUTSIDE RECORDS SUMMARY | 2018-06-09 08:55 | XMS REPORT | Continuity of Care Document ---
:1965 External Reference #:[id number] Author Name Anuradha Barber, JAMES Address [address] [place] [address] Care Team Providers Name Role Phone Juliette Gomez PA Care Team Information Computational Chemist Unavailable Payers Date Identification Numbers Payment Provider Subscriber Effective: 2011 Policy Number: [id number] [facility] Commercial Jenna Ames PayID: [id number] [address] [address] [place] [address] Onset: 2008 Policy Number: [id number] [employer] Jenna Ames PayID: [id number] [address] [place] [address] Advance Directives Description No Information Available Problems [...] Form Strength Qnty SIG Indications Ordering Provider Mometasone 03/21 Active Suspension 50mcg/Act 51gm 2 sprays Salcedo, Fur each Elkin nostril DO daily Proair HFA 07/26 Active Aerosol 108(90Bas 1unit 2 puffs J06.9 Digiovann e) s every 4 a, mcg/Act hours as Anuradha, needed for OUTPATIENT THERAPIST cough or sob Montelukast 12/21 Active Tablets 10mg 90tab take 1 Salcedo, s tablet Elkin, daily DO Levofloxacin 03/21 [...] Tablets 500mg 7tabs 1 by mouth J01.90 Ishaan every day Cody, - DO 08/07 Benzonatate 07/26 Hx Capsules 200mg 30cap 1 by mouth J06.9 Digiovann s every 8 a, - hours as Anuradha, 02/19 needed for cough, may cause drowsiness Nitrofurantoin 07/07 Hx Capsules 100mg 14cap 1 po bid x N39.0 Jason, Monohyd Macro s 7 days Geo Segovia PA 07/14 Tessalon 03/07 Hx Capsules 200mg 30cap 1 by mouth J06.9 Ishaan, s three times Cody, - a day DO 07/07 Fluocinolone 06/16 Hx Cream 0.01% 60gm Apply To L23.5 Ishaan, Acetonide Area bid X Cody, - 7-10 Days DO 03/07 Diflucan 06/13 Hx Tablets 150mg 1tabs 1 by mouth Ishaan, now Cody, - DO 03/07 Levaquin 02/12 Hx Tablets 500mg 10tab 1 po daily R05 Salcedo, s Elkin, - DO 02/22 Prednisone 02/12 Hx Tablets 10mg 21tab 6 pills R05 , s daily x 1 Elkin, - day, [...] 100mg 20tab 1 by mouth J32.9 Ishaan, cl s twice a day Cody, - DO 01/14 Azithromycin 12/03 Hx Tablets 500mg 7tabs 1 by mouth 461.9 Ishaan, every day Cody, - DO 12/21 Singulair 10/05 Hx Tablets 10mg 90tab Take 1 By Ishaan, s Mouth Cody, - Nightly AT DO 11/02 Bedtime Doxycycline 07/[address] 100mg 20tab 1 by mouth 461.8 Ishaan, cl s twice a day Cody, - DO 10/05 Diflucan 06/15 Hx Tablets 150mg 1tabs 1 PO Now Cody, - DO 07/14 Clobetasol 04/06 Hx Cream 0.05% 60gm apply to area twice Cody, - a day DO [...] 07/31 Hx Suspension 50mcg/Act 51gm 2 sprays Ishaan, each Cody, - nostril DO 03/21 Montelukast 08/09 Hx Tablets 10mg 90tab 1 by mouth Ishaan, s every night Cody, - at bedtime DO 10/05 Medications Administered in Office Medication Date Status Form Strength Qnty SIG Indications Ordering Provider Depo Medrol 40 Administered Injection Ishaan, MG 016 Cody, Immunizations CPT Code Status Date Vaccine Reaction Lot # [id number] Given 12/26/2004 Tetanus And Diptheria Toxoids For Adult Use-preservative free Q2039 Refused 02/26/2018 Flu Vaccine NOS Pt says she does not get flu shots. IESHA GUZMAN 02/26/18 Vital Signs Date Vital Result Comment 05/10/2018 11:30am Body Temperature 98.1 F tympanic [...] Date Facility Test Result H/L Range Note Allergy Interp [facility] Allergy Interp See Note 1 9 [phone] Giulia Albicans [facility] Giulia Albicans <0.10 kU/L 2 Ige 9 [phone] [facility] Penicillium [facility] Penicillium <0.10 kU/L 3 [facility] Allergen 9 [phone] [facility] Ige C Herbarum Ige [facility] C. Herbarum <0.35 kU/L (0.00-0.35 9 [phone] Result ) C. Herbarum Class 0 A Tenuis Ige 03/26/2018 [facility] A. Tenuis Result <0.35 kU/L (0.00- 0.35) 4 [phone] A. Tenuis Class 0 A. Fumigatus Ige 03/26/2018 [facility] A. Fumigatus <0.35 kU/L (0.00- 0.35) [phone] Result A. Fumigatus Class 0 Laboratory 05/10/2017 [facility] Urine HCG NEGATIVE Negative 5, test finding [phone] (Qualitative) 6 Laboratory 07/07/2016 [facility] Microbiology Abnormal 7 test finding res <SEE NOTE> Basic (BMP) 04/17/2014 [facility] [...] % Lymph 15 % Low 20-44 % [place] 5.8 % 2.0-10.0 % [place] 71 % High 50-70 Absolute Baso. 0.1 K/ul 0.0-0.3 Absolute Eos. 0.9 K/ul High 0.0-0.5 Absolute Lymph. 1.8 K/ul 0.8-4.8 Absolute [place]. 0.7 K/ul 0.1-1.0 Absolute [place]. 8.34 K/ul [...] 30.8-34.3 Mean Platelet Volume 10.8 fL 8.9-12.4 [place] # 0.75 K/uL 0.3-0.9 [place] % 6.1 % 4.3-13.2 Neut# 8.09 K/uL [...] Vitamin B12 676 pg/mL [phone] 1 REFERENCE INTERVAL: Allergen, Interpretation Less than 0.10 [...] clinical allergy or even anaphylaxis. Performed by [facility], [address] [facility],[id number] [email or web address], Edd Tapia MD, Lab. Director 2 Reference range: <=0.34 Performed by [facility], [address] [employer] [facility] [place] [id number] [email or web address], Edd Tapia MD, Lab. Director 3 Reference range: <=0.34 Performed by [facility], [address] [employer] [facility] [place] [id number] [email or web address], Edd Tapia MD, Lab. Director 4 REFERENCE RANGES FOR SPECIFIC IgE TESTS: IgE (kU/L) INTERPRETATION < 0.35 CLASS 0 ABSENT/VERY LOW 0.35 to 0.69 CLASS 1 LOW 0.70 to 3.49 CLASS 2 MODERATE 3.50 to 17.49 CLASS 3 HIGH 17.50 to 52.49 CLASS 4 VERY HIGH 52.50 to 99.99 CLASS 5 VERY HIGH > 99.99 CLASS 6 VERY HIGH 5 SCREENING 6 FIRST MORNING SPECIMENS GENERALLY CONTAIN THE HIGHEST CONCENTRATION OF HCG AND ARE RECOMMENDED FOR EARLY DETECTION OF . Method: LYZER DIAGNOSTICSidel QuickVue One-Step Immunoassay 7 Microbiology results SOURCE [...] - SLE ( Smooth) Histone Speckled Sm, SENIOR IT ASSISTANT, SCL-70, SLE,MCTD,Scleroderma,Sjogrens SS-A/SS-B ---- Nucleolar SCL-70, PM-1/SCL High titers Scleroderma Poly- myositis/Scleroderma Overlap Centromere Centromere PSS w/Crest syndrome variable Performed at: [facility], [place], [place] [id number] Desk Editor: Joey Walker MD, Phone: [phone] 15 Note: Persistent reduction for 3 months [...] be a threshold for optimal health. Ambrosio . J Nutr. 2004;135(2):317-22. Performed at: - [facility] [address] [id number] Desk Editor: Joey Walker MD, Phone: [phone] 17 Recent studies consider the lower limit of 32.0 ng/mL to be a threshold for optimal health. Ambrosio BW. J Nutr. 2004;135(2):317-22. Performed at: - [facility] [address] [id number] Desk Editor: Joey Walker MD, Phone: [phone] 18 FASTING 19 Recent studies consider the lower limit of 32.0 ng/mL to be a threshold for optimal health. Ambrosio BW. J Nutr. 2004;135(2):317-22. 20 NO GROWTH: FINAL REPORT Procedures Date Code Description Status 02/26/2018 09879 Measure Blood Oxygen Level Single Determination Completed 08/07/2017 17155 Measure Blood Oxygen Level Single Determination Completed 05/10/2017 66057916 Colonoscopy Completed 02/28/2017 07650980 Mammogram Completed 02/19/2017 93125 Measure Blood Oxygen Level Single Determination Completed 07/26/2016 21997 Measure Blood Oxygen Level Single Determination Completed 04/06/2015 71211 Inject/Drain Joint/Bursa Intermediate Completed 02/12/2015 69808 Measure Blood Oxygen Level Single Determination Completed 02/12/2015 82450 X-Ray Chest Two Views Frontal & Lateral Completed 07/14/2014 67817 Measure Blood Oxygen Level Single Determination Completed 11/08/2012 84945 Mammography Unilateral Completed 12/25/2011 36946 Measure Blood Oxygen Level Single Determination Completed 08/03/2011 22112 Destruction Benign Lesions Other Than Skin Tags Up To Completed 14 Lesions 07/07/2011 80985 Destruction Benign Lesions Other Than Skin Tags Up To Completed 14 Lesions 06/30/2008 79408 Measure Blood Oxygen Level Single Determination Completed 03/31/2008 01247 Omt 1-2 Body Regions Completed Encounters Type Date Location Provider Dx Diagnosis Office Visit 03/21/2018 [facility] Juliette Gomez PA J01.90 Acute sinusitis, 4:00p unspecified J30.9 Allergic rhinitis, unspecified Z68.28 Body mass index (BMI) 28.0-28.9, adult Office Visit 02/26/2018 11:30a [facility] Anuradha Barber J01.90 Acute sinusitis, OUTPATIENT THERAPIST unspecified Office Visit 08/07/2017 2:45p [facility] Anuradha Barber J01.90 Acute sinusitis, OUTPATIENT THERAPIST unspecified Office Visit 02/19/2017 11:00a [facility] Cody Quiros DO J01.90 Acute sinusitis, unspecified R35.0 Frequency of micturition Z12.11 Encounter for screening for malignant neoplasm of colon Office Visit 07/26/2016 2:45p [facility] Anuradha Barber J06.9 Acute upper OUTPATIENT THERAPIST respiratory infection, unspecified Office Visit 07/07/2016 1:30p [facility] Juliette Gomez PA N39.0 Urinary tract infection, site not specified Office Visit 03/07/2016 11:00a [facility] Cody Quiros DO J06.9 Acute upper respiratory infection, unspecified Office Visit 06/17/2015 2:45p Cody Hester DO L23.5 Allergic contact dermatitis due to other chemical products M77.12 Lateral epicondylitis, LEFT elbow Office Visit 04/06/2015 4:00p [facility] Cody Quiros M77.12 Lateral epicondylitis, DO LEFT elbow M25.522 Pain in LEFT elbow Office Visit 02/12/2015 11:30a Libertad Velazquez PA R05 Cough Office Visit 01/14/2015 9:30a Cody Hester DO J32.9 Chronic sinusitis, unspecified Office Visit 12/03/2014 4:15p Cody Hester DO 461.9 Sinusitis Acute Unspec Office Visit 10/05/2014 3:15p Cody Hester DO 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 477.0 Rhinitis Allergic Due To Pollen 790.29 Other Abnormal Glucose Office Visit 07/14/2014 2:30p [facility] Cody Quiros DO 461.8 Sinusitis Acute Other Office Visit 04/06/2014 3:15p [facility] Cody Quiros DO 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
[2018-06-09 09:02] VITALS: BP 127/69
--- NOTE | 2018-06-09 09:35 | UC ---
Throat Pain/Nasal Kamlesh HPI - HPI Summary HPI Summary: Left ear and throat pain. She has had uri symptoms for about 5 days and this started with diarrhea on Sun. She has had chills but no known fever. The ear pain and throat pain started a few days ago. No drainage. She has had her tonsils out and prior sinus surgery. - History of Current Complaint Chief Complaint: UCEar Stated Complaint: LEFT EAR CONCERN Time Seen by Provider: 06/09/18 09:08 Hx Obtained From: Patient Hx Last Menstrual Period: early May 2018 Onset/Duration: Gradual Onset, Lasting Days Severity: Moderate Pain Intensity: 6 Cough: Nonproductive Associated Signs & Symptoms: Positive: Dysphagia. Negative: Sinus Discomfort, Nasal Discharge, Fever, Vomiting, Rash - Epiglottits Risk Factors Epiglottis Risk Factors: Negative - Allergies/Home Medications Allergies/Adverse Reactions: Allergies Allergy/AdvReac Type Severity Reaction Status Date / Time amoxicillin Allergy Hives Verified 06/09/18 08:55 Sulfa (Sulfonamide Allergy Hives Verified 06/09/18 08:55 Antibiotics) Home Medications: Home Medications Ibuprofen TAB* [Motrin TAB* 600 MG] 600 mg PO ONCE PRN 06/09/18 [History Confirmed 06/09/18] PMH/Surg Hx/FS Hx/Imm Hx Previously Healthy: No - sinus disease and tonsil disease. - Surgical History Surgical History: Yes Surgery Procedure, Year, and Place: tubal ligation. hernia. tonsils. bladder sling. uterine ablation - Family History Known Family History: Positive: Diabetes - Social History Alcohol Use: None Substance Use Type: None Smoking Status (MU): Former Smoker When Did the Patient Quit Smoking/Using Tobacco: 2004 Review of Systems All Other Systems Reviewed And Are Negative: Yes ENT: Positive: Sore Throat, Ear Ache Physical Exam Triage Information Reviewed: Yes Appearance: Well-Appearing, No Pain Distress, Well-Nourished Vital Signs: Initial Vital Signs Temp 98.2 F 06/09/18 08:59 Pulse 66 06/09/18 08:59 Resp 16 06/09/18 08:59 BP 127/69 06/09/18 08:59 Pulse Ox 99 06/09/18 08:59 Vital Signs Reviewed: Yes Eyes: Positive: Conjunctiva Clear ENT: Positive: Normal ENT inspection, Pharynx normal, TM bulging - and mildly injected. NO purulence., Uvula midline. Negative: Pharyngeal erythema, Nasal congestion, Nasal drainage, Tonsillar swelling, Tonsillar exudate, Trismus, Muffled voice Neck: Positive: Supple, Nontender, No Lymphadenopathy Respiratory: Positive: Lungs clear, Normal breath sounds. Negative: No respiratory distress, No accessory muscle use, Respiratory distress, Decreased breath sounds, Accessory muscle use, Crackles, Rhonchi, Stridor, Wheezing Cardiovascular: Positive: No Murmur, Pulses Normal Abdomen Description: Positive: No Organomegaly, Soft. Negative: Distended, Guarding Musculoskeletal: Positive: Strength Intact, ROM Intact, No Edema Neurological: Positive: Alert, Muscle Tone Normal. Negative: Fatigued Psychological: Positive: Normal Response To Family Skin: Negative: Rashes Throat Pain/Nasal Course/Dx - Differential Dx/Diagnosis Provider Diagnosis: Otalgia of left ear, Pharyngitis Discharge - Sign-Out/Discharge Documenting (check all that apply): Patient Departure All imaging exams completed and their final reports reviewed: No Studies - Discharge Plan Condition: Good Disposition: HOME Patient Education Materials: Pharyngitis (ED), Earache (ED) Referrals: Juliette Gomez PA [Primary Care Provider] - If Needed Additional Instructions: motrin 600mg three times a day, nasonex both nostrils twice a day, over the counter decongestant. - Billing Disposition and Condition Condition: GOOD Disposition: Home
== END 2018-06-09 09:33 | disposition home or self-care (01) ==
LOC: UCCORT 08:46
DX: H92.02 Otalgia, left ear (principal); J02.9 Acute pharyngitis, unspecified; R13.10 Dysphagia, unspecified; R19.7 Diarrhea, unspecified; Z88.0 Allergy status to penicillin; Z88.2 Allergy status to sulfonamides; Z87.891 Personal history of nicotine dependence
CPT/HCPCS: 99211; G0463

== ENCOUNTER 2018-09-08 16:54 | Emergency (ER) | payer BC ==
[2018-09-08 17:42] VITALS: BP 122/58
--- NOTE | 2018-09-08 18:00 | UC ---
Complaint Female HPI - HPI Summary HPI Summary: 53-year-old female who started having burning on urination and frequency today. She does have a history of UTIs however has not had one for approximately 8-9 months. She denies any fever or chills or back pain. She states she is not presently . - History Of Current Complaint Chief Complaint: [facility]CGU Stated Complaint: URINARY Time Seen by Provider: 09/08/18 17:28 Hx Obtained From: Patient Hx Last Menstrual Period: 1.5 weeks ?: No Onset/Duration: Gradual Onset, Lasting Hours Timing: Intermittent Severity Initially: Mild Severity Currently: Mild Pain Intensity: 0 Character: Burning Aggravating Factor(s): Urination Alleviating Factor(s): Nothing Associated Signs And Symptoms: Positive: Negative - Allergies/Home Medications Allergies/Adverse Reactions: Allergies Allergy/AdvReac Type Severity Reaction Status Date / Time amoxicillin Allergy Hives Verified 09/08/18 17:42 Sulfa (Sulfonamide Allergy Hives Verified 09/08/18 17:42 Antibiotics) PMH/Surg Hx/FS Hx/Imm Hx Previously Healthy: Yes - Surgical History Surgical History: Yes Surgery Procedure, Year, and Place: tubal ligation. hernia. tonsils. bladder sling. uterine ablation - Family History Known Family History: Positive: Diabetes - Social History Alcohol Use: Rare Substance Use Type: None Smoking Status (MU): Former Smoker When Did the Patient Quit Smoking/Using Tobacco: 2004 Review of Systems All Other Systems Reviewed And Are Negative: Yes Genitourinary: Positive: Dysuria, Frequency, Urgency Is Patient Immunocompromised?: No Physical Exam Triage Information Reviewed: Yes Appearance: Well-Appearing, No Pain Distress, Well-Nourished Vital Signs: Initial Vital Signs Temp 98.2 F 09/08/18 17:35 Pulse 63 09/08/18 17:35 Resp 22 09/08/18 17:35 BP 122/58 09/08/18 17:35 Pulse Ox 100 09/08/18 17:35 Vital Signs Reviewed: Yes Respiratory: Positive: Lungs clear, Normal breath sounds, No respiratory distress, No accessory muscle use Cardiovascular: Positive: RRR, No Murmur, Pulses Normal, Brisk Capillary Refill Abdomen Description: Positive: Nontender, No Organomegaly, Soft. Negative: CVA Tenderness (R), CVA Tenderness (L) Bowel Sounds: Positive: Present Musculoskeletal Exam: Normal Neurological Exam: Normal Psychological Exam: Normal Skin Exam: Normal Complaint Female Dx - Course Course Of Treatment: Patient has been comfortable here. She is allergic to sulfa therefore I'm going to treat her with Macrobid 100 mg twice a day 7 days. Increase fluids. - Differential Dx/Diagnosis Provider Diagnosis: UTI (urinary tract infection) Discharge - Sign-Out/Discharge Documenting (check all that apply): Patient Departure All imaging exams completed and their final reports reviewed: No Studies - Discharge Plan Condition: Fair Disposition: HOME Prescriptions: Nitrofurantoin Monohyd/M-Cryst [Macrobid 100 mg Capsule] 100 mg PO BID 7 Days # 14 cap Patient Education Materials: Urinary Tract Infection in Women (DC) Referrals: Juliette Gomez PA [Primary Care Provider] - Additional Instructions: Increase fluids, if you develop fever, back pain, vomiting unable keep medication down then you're to go to the emergency room. - Billing Disposition and Condition Condition: FAIR Disposition: Home
[2018-09-08] MEDS ORDERED: Nitrofurantoin Macrocrystals* 50 MG CAP PO ONE (18:01)
== END 2018-09-08 18:09 | disposition home or self-care (01) ==
LOC: UCCORT 16:54
DX: N39.0 Urinary tract infection, site not specified (principal); B96.20 Unspecified Escherichia coli [E. coli] as the cause of diseases classified elsewhere; Z87.440 Personal history of urinary (tract) infections; Z88.0 Allergy status to penicillin; Z88.2 Allergy status to sulfonamides; Z87.891 Personal history of nicotine dependence
CPT/HCPCS: 81003; 87077; 87086; 87186; 99212; A9270-GY; G0463